=== PATIENT | male | born 1970 | race African-American/Black ===

== ENCOUNTER 2025-04-28 13:18 | Emergency (ER) | payer MEDICAID ==
[~2025-04-28] VITALS: Ht 185.4 cm; Wt 91.0 kg
[2025-04-28 13:24] VITALS: O2SAT 100
[2025-04-28 14:27] LABS: BASOPHILS % 0.6 % (0.0-2.0); EOSINOPHILS % 0.9 % (0.0-5.0); HEMATOCRIT. 40.4 % (42.0-52.0); HEMOGLOBIN. 13.8 g/dL (14.0-18.0); LYMPHOCYTES % 9.4 % (20.0-50.0); MEAN PLATELET VOLUME 8.7 fl (7.4-10.4); MONOCYTES % 4.9 % (2.0-8.0); NEUTROPHILS % 84.2 % (40.0-76.0); PLATELET 234 x1000/uL (130-400); RED BLOOD CELL COUNT 4.54 mill/uL (4.7-6.1); RED CELL DISTRIBUTION WIDTH 15.1 % (11.6-14.6)
[2025-04-28] MEDS: SODIUM CHLORIDE 0.9% 1,000 ML IV ONE (14:28)
[2025-04-28 14:40] LABS: CREATININE 0.6 mg/dL (0.6-1.3); ETHANOL BLOOD < 10 mg/dL (<10); UREA NITROGEN BLOOD 7 mg/dL (9-23)
[2025-04-28] MEDS: POTASSIUM CHLORIDE 20MEQ/PACKET PO SCH (16:10)
[2025-04-28] MEDS: KCL 20MEQ/100ML PREMIX 100 ML IV SCH (16:10)
[2025-04-28 18:30] VITALS: BP 164/98; PULSE 84; RESP 20; O2SAT 99
== END 2025-04-28 18:30 | disposition home or self-care (01) ==
LOC: ER 13:18
DX: R19.7 Diarrhea, unspecified (principal); I10 Essential (primary) hypertension; Z59.00 Homelessness unspecified; Z55.6 Problems related to health literacy
CPT/HCPCS: 80048; 80320; 82550; 85025; 36415; 96361; 96365; 99284; J3480; J7030; G0480